=== PATIENT | female | born 1995 | race Native Hawaiian/Other Pacific Islander ===

== ENCOUNTER 2016-07-17 23:32 | Inpatient (IN) | payer MEDICAID, OTHER ==
[2016-07-18] MEDS ORDERED: LACTATED RINGERS 1,000 ML ONE (00:10)
[2016-07-18] MEDS ORDERED: POLYCILLIN/NS 2 GM/100 ML 2 GM/100 ML BAG IV ONE ×2 (00:10→00:14)
[2016-07-18] MEDS ORDERED: BRETHINE SUB-Q PRN (00:14)
[2016-07-18] MEDS ORDERED: MINERAL OIL PO PRN (00:14)
[2016-07-18] MEDS ORDERED: ePHEDrine SULFATE IV PRN ×2 (00:14→01:49)
[2016-07-18] MEDS ORDERED: BRETHINE IVP PRN (00:14)
[2016-07-18] MEDS ORDERED: XYLOCAINE 2% INFILTRATI ONE (00:14)
[2016-07-18 00:48] LABS: Urine Drugs of Abuse Note Disclamer
[2016-07-18 01:00] LABS: Hematocrit 33.9 % (30.3-42.9); Hemoglobin 11.1 gm/dl (10.1-14.3); Mean Corpuscular HGB Conc 33 % (30-34); Mean Corpuscular Hemoglobin 26 pg (28-32); Mean Corpuscular Volume 79 fl (79-97); Platelet Count 206 K/mm3 (140-440); Red Blood Count 4.27 M/mm3 (3.65-5.03); Red Cell Distribution Width 14.9 % (13.2-15.2); White Blood Count 8.8 K/mm3 (4.5-11.0)
[2016-07-18] MEDS ORDERED: LACTATED RINGERS 1,000 ML IV SCH (01:00)
[2016-07-18] MEDS: SUBLIMAZE IV PRN ×2 (01:16→08:25)
[2016-07-18] MEDS ORDERED: ePHEDrine SULFATE ONE (01:41)
[2016-07-18] MEDS ORDERED: NARCAN 2 MG/2 ML IV PRN (01:49)
--- NOTE | 2016-07-18 01:49 | Anesthesia Consultation ---
Anesthesia Consult and Med Hx Date of service: 07/18/16 - Airway Anesthetic Teeth Evaluation: Good ROM Head & Neck: Adequate Mental/Hyoid Distance: Adequate Mallampati Class: Class II Intubation Access Assessment: Good - Pulmonary Exam CTA: Yes - Cardiac Exam Cardiac Exam: No Murmur - Pre-Operative Health Status ASA Pre-Surgery Classification: ASA2 Proposed Anesthetic Plan: Epidural - Pulmonary Hx Asthma: Yes (childhood asthma) COPD: No Hx Pneumonia: No - Cardiovascular System Hx Hypertension: No Hx Coronary Artery Disease: No Hx Heart Attack/AMI: No Hx Angina: No - Central Nervous System Hx Seizures: No Hx Psychiatric Problems: No - Endocrine Hx Renal Disease: No Hx End Stage Renal Disease: No Hx Hypothyroidism: No Hx Hyperthyroidism: No - Hematic Hx Anemia: No Hx Sickle Cell Disease: No - Other Systems Hx Alcohol Use: No
[2016-07-18] MEDS ORDERED: fentaNYL-BUPIV 2 MCG/ML-0.125% 200 MCG/100 ML BAG EPIDURAL SCH (02:00)
--- NOTE | 2016-07-18 02:05 | History and Physical Report ---
History of Present Illness Date of examination: 07/18/16 Date of admission: 07/18/16 00:09 Chief complaint: Labor Past History Past Medical History: no pertinent history Past Surgical History: no surgical history GROUTMAN History: fibroids. denies: chlamydia, gonorrhea, hepatitis B, hepatitis C, herpes, HIV, syphilis, trichomonas Social history: no significant social history - Obstetrical History Expected Date of Delivery: 07/18/16 (By US performed at 30wk on 05/09/16) Actual Gestation: 40 Week(s) 0 Day(s) : 2 Para: 1 Number of Living Children: 1 #1 Gender: Female year: Birthweight: 3.4 kg Method of Delivery: Vaginal Gestational age at delivery: 40 Complications: none Medications and Allergies Allergies Allergy/AdvReac Type Severity Reaction Status Date / Time No Known Allergies Allergy Unverified 11/17/14 00:39 Home Medications Medication Instructions Recorded Confirmed Last Taken Type Pnv Plus Multivit Tab 1 tab PO DAILY 11/17/14 11/17/14 1 Day Ago History 1 Ferrous Sulfate [Feosol 325 MG tab] 325 mg PO BID PRN #60 tablet 11/18/14 Unknown Rx Ibuprofen [Motrin 600 MG tab] 600 mg PO Q6H PRN #30 tablet 11/18/14 Unknown Rx Active Meds: Active Medications Fentanyl (Sublimaze) 100 mcg IV Q2H PRN PRN Reason: Labor Pain Last Admin: 07/18/16 01:16 Dose: 100 mcg Lactated Ringer's (Lactated Ringers) 1,000 mls @ 125 mls/hr IV DIRECT ELLA Last Admin: 07/18/16 00:45 Dose: 125 mls/hr Oxytocin/Sodium Chloride (Pitocin/Ns 20 Unit/1000ml Drip) 20 units in 1,000 mls @ 125 mls/hr IV DIRECT ELAL Ampicillin Sodium (Polycillin/Ns 1 Gm/50 Ml) 1 gm in 50 mls @ 100 mls/hr IV Q4H ELLA PRN Reason: Protocol Fentanyl/Bupivacaine/Sodium Chlor (Fentanyl-Bupiv 2 Mcg/Ml-0.125%) 200 mcg in 100 mls @ 12 mls/hr EPIDURAL TITR ELLA PRN Reason: Protocol Mineral Oil (Mineral Oil) 30 ml PO QHS PRN PRN Reason: Constipation Review of Systems All systems: negative Genitourinary: contractions - Vital Signs Vital signs: Vital Signs Pulse BP Pulse Ox 82 142/83 96 07/17/16 23:43 07/17/16 23:43 07/17/16 23:43 Temp Pulse Resp BP Pulse Ox 97.6 F 81 20 119/74 99 07/18/16 00:45 07/18/16 01:57 07/18/16 01:16 07/18/16 01:57 07/18/16 01:53 - Physical Exam Breasts: Positive: deferred Abdomen: Positive: normal appearance Genitourinary (Female): Positive: normal external genitalia, normal perenium - Obstetrical Cervical Dilatation: 7 (by RN) Results Result Diagrams: 07/18/16 00:25 Abnormal lab results 07/18/16 Range/Units 00:25 MCH 26 L (28-32) pg All other labs normal. Ultrasound: report reviewed (performed in [place]) Assessment and Plan - Patient Problems (1) 40 weeks gestation of Current Visit: Yes Status: Acute (2) Active labor at term Current Visit: Yes Status: Acute
[2016-07-18 02:53] LABS: HIV-1 Antigen p24 Non React (Non React); HIVR-1/2 Ab Non React (Non React)
[2016-07-18] MEDS ORDERED: POLYCILLIN/NS 1 GM/50 ML 1 GM/50 ML BAG IV SCH (04:00)
--- NOTE | 2016-07-18 04:57 | Progress Note ---
Assessment and Plan - Patient Problems (1) 40 weeks gestation of Current Visit: Yes Status: Acute (2) Active labor at term Current Visit: Yes Status: Acute Subjective - Subjective Date of service: 07/18/16 Patient reports: no new complaints Objective - Vital Signs Vital Signs: Vital Signs - 12hr 07/17/16 07/17/16 07/17/16 23:43 23:45 23:48 Temperature 98.0 F Pulse Rate 82 76 Respiratory 18 Rate Blood Pressure 142/83 Blood Pressure 142/83 [Left Arm] O2 Sat by Pulse 96 98 Oximetry 07/17/16 07/18/16 07/18/16 23:53 00:45 00:52 Temperature 97.6 F Pulse Rate 75 91 H Respiratory 18 Rate Blood Pressure Blood Pressure [Left Arm] O2 Sat by Pulse 99 99 Oximetry 07/18/16 07/18/16 07/18/16 00:53 01:16 01:48 Temperature Pulse Rate 90 77 Respiratory 20 Rate Blood Pressure 114/70 125/84 Blood Pressure [Left Arm] O2 Sat by Pulse 98 Oximetry 07/18/16 07/18/16 07/18/16 01:53 01:57 01:58 Temperature Pulse Rate 77 81 79 Respiratory Rate Blood Pressure 119/74 Blood Pressure [Left Arm] O2 Sat by Pulse 99 98 Oximetry 07/18/16 07/18/16 07/18/16 01:59 02:01 02:03 Temperature Pulse Rate 69 71 65 Respiratory Rate Blood Pressure 128/79 124/70 128/77 Blood Pressure [Left Arm] O2 Sat by Pulse Oximetry 07/18/16 07/18/16 07/18/16 02:04 02:05 02:07 Temperature Pulse Rate 77 80 84 Respiratory Rate Blood Pressure 119/63 120/59 Blood Pressure [Left Arm] O2 Sat by Pulse 98 Oximetry 07/18/16 07/18/16 07/18/16 02:09 02:11 02:13 Temperature Pulse Rate 81 84 88 Respiratory Rate Blood Pressure 115/59 119/61 112/61 Blood Pressure [Left Arm] O2 Sat by Pulse 98 Oximetry 07/18/16 07/18/16 07/18/16 02:14 02:15 02:17 Temperature Pulse Rate 82 78 72 Respiratory Rate Blood Pressure 99/51 111/53 Blood Pressure [Left Arm] O2 Sat by Pulse 98 84 Oximetry 04/07/18/16 07/18/16 02:19 02:24 02:29 Temperature Pulse Rate 78 81 80 Respiratory Rate Blood Pressure Blood Pressure [Left Arm] O2 Sat by Pulse 96 97 97 Oximetry 07/18/16 07/18/16 07/18/16 02:34 02:39 02:44 Temperature Pulse Rate 84 99 H 79 Respiratory Rate Blood Pressure 100/58 Blood Pressure [Left Arm] O2 Sat by Pulse 97 96 96 Oximetry 07/18/16 07/18/16 07/18/16 02:46 02:49 02:54 Temperature Pulse Rate 83 77 80 Respiratory Rate Blood Pressure Blood Pressure [Left Arm] O2 Sat by Pulse 94 95 95 Oximetry 07/18/16 07/18/16 07/18/16 02:59 03:00 03:04 Temperature Pulse Rate 104 H 75 79 Respiratory Rate Blood Pressure Blood Pressure [Left Arm] O2 Sat by Pulse 99 94 93 Oximetry 07/18/16 07/18/16 07/18/16 03:07 03:09 03:13 Temperature Pulse Rate 82 77 84 Respiratory Rate Blood Pressure Blood Pressure [Left Arm] O2 Sat by Pulse 94 95 94 Oximetry 07/18/16 07/18/16 07/18/16 03:14 03:18 03:19 Temperature Pulse Rate 85 84 85 Respiratory Rate Blood Pressure 119/64 Blood Pressure [Left Arm] O2 Sat by Pulse 94 94 Oximetry 07/18/16 07/18/16 07/18/16 03:24 03:31 03:33 Temperature Pulse Rate 94 H 87 87 Respiratory Rate Blood Pressure Blood Pressure [Left Arm] O2 Sat by Pulse 95 97 94 Oximetry 07/18/16 07/18/16 07/18/16 03:36 03:41 03:42 Temperature Pulse Rate 88 97 H 88 Respiratory Rate Blood Pressure Blood Pressure [Left Arm] O2 Sat by Pulse 96 95 94 Oximetry 07/18/16 07/18/16 07/18/16 03:46 03:49 03:51 Temperature Pulse Rate 99 H 84 89 Respiratory Rate Blood Pressure Blood Pressure [Left Arm] O2 Sat by Pulse 96 94 96 Oximetry 07/18/16 07/18/16 07/18/16 03:54 03:56 04:01 Temperature Pulse Rate 86 79 76 Respiratory Rate Blood Pressure Blood Pressure [Left Arm] O2 Sat by Pulse 94 95 95 Oximetry 04/07/18/16 07/18/16 04:02 04:06 04:11 Temperature Pulse Rate 78 78 75 Respiratory Rate Blood Pressure Blood Pressure [Left Arm] O2 Sat by Pulse 94 95 96 Oximetry 07/18/16 07/18/16 07/18/16 04:13 04:16 04:21 Temperature Pulse Rate 80 76 76 Respiratory Rate Blood Pressure Blood Pressure [Left Arm] O2 Sat by Pulse 94 95 95 Oximetry 07/18/16 07/18/16 07/18/16 04:26 04:31 04:36 Temperature Pulse Rate 81 77 76 Respiratory Rate Blood Pressure Blood Pressure [Left Arm] O2 Sat by Pulse 96 94 95 Oximetry 07/18/16 07/18/16 07/18/16 04:38 04:41 04:43 Temperature Pulse Rate 79 80 82 Respiratory Rate Blood Pressure Blood Pressure [Left Arm] O2 Sat by Pulse 94 94 94 Oximetry 07/18/16 04:46 Temperature Pulse Rate 74 Respiratory Rate Blood Pressure 118/68 Blood Pressure [Left Arm] O2 Sat by Pulse 97 Oximetry - Exam FHR: category 1 Uterine Contraction Monitor Mode: External Cervical Dilatation: 9 Cervical Effacement Percentage: 90 station: 0 AROM CLEAR Uterine Contraction Pattern: Regular - Labs Labs: Abnormal Labs 07/18/16 00:25 MCH 26 L Laboratory Results - last 24 hr 07/18/16 07/18/16 07/18/16 00:25 00:25 00:25 WBC 8.8 RBC 4.27 Hgb 11.1 Hct 33.9 MCV 79 MCH 26 L MCHC 33 RDW 14.9 Plt Count 206 Urine Opiates Screen Urine Methadone Screen Ur Barbiturates Screen Ur Phencyclidine Scrn Ur Amphetamines Screen U Benzodiazepines Scrn Urine Cocaine Screen U Marijuana (THC) Screen Drugs of Abuse Note Hep Bs Antigen Hepatitis C Antibody Non-reactive HIV 1&2 Antibody Rapid HIV P24 Antigen Rubella IgG Antibody Immune Blood Type O POSITIVE Antibody Screen Negative 07/18/16 07/18/16 07/18/16 00:25 00:25 00:25 WBC RBC Hgb Hct MCV MCH MCHC RDW Plt Count Urine Opiates Screen Presumptive negative Urine Methadone Screen Presumptive negative Ur Barbiturates Screen Presumptive negative Ur Phencyclidine Scrn Presumptive negative Ur Amphetamines Screen Presumptive negative U Benzodiazepines Scrn Presumptive negative Urine Cocaine Screen Presumptive negative U Marijuana (THC) Screen Presumptive negative Drugs of Abuse Note Disclamer Hep Bs Antigen Non-reactive Hepatitis C Antibody HIV 1&2 Antibody Rapid Non react HIV P24 Antigen Non react Rubella IgG Antibody Blood Type Antibody Screen
[2016-07-18] MEDS: PITOCin/NS 20 UNIT/1000ML DRIP 20 UNITS/1,000 ML BAG IV SCH ×2 (05:32→06:34)
--- NOTE | 2016-07-18 05:42 | Procedure Note ---
OB Delivery Note - Delivery Date of Delivery: 07/18/16 Surgeon: PERCY ALFREDO Estimated blood loss: 200cc - Vaginal Delivery presentation: vertex Delivery position: OA Delivery induction: none Delivery monitor: external FHT, external uterine Route of delivery: Delivery placenta: spontaneous (INTACT) Episiotomy: none Delivery laceration: none Anesthesia: epidural - A at 1 minute: 8 at 5 minutes: 9 Gender: Female (7-5)
[2016-07-18] MEDS ORDERED: METHERGINE IM PRN (06:02)
[2016-07-18] MEDS ORDERED: PHENERGAN PO PRN (07:40)
[2016-07-18] MEDS ORDERED: BENADRYL PO PRN (07:40)
[2016-07-18] MEDS ORDERED: SODIUM CHLORIDE FLUSH SYRINGE 10 ML IV NR (07:40)
[2016-07-18] MEDS ORDERED: TORADOL IV PRN (07:40)
[2016-07-18] MEDS ORDERED: PERCOCET 5/325 PO PRN (07:40)
[2016-07-18] MEDS ORDERED: ZOFRAN IV PRN (07:40)
[2016-07-18] MEDS ORDERED: TYLENOL PO PRN (07:40)
[2016-07-18] MEDS ORDERED: MILK OF MAGNESIA PO PRN (07:40)
[2016-07-18] MEDS ORDERED: LANSINOH TP PRN (07:40)
[2016-07-18] MEDS ORDERED: PHENERGAN PR PRN (07:40)
[2016-07-18] MEDS ORDERED: TUCKS PAD TP PRN (07:40)
[2016-07-18] MEDS ORDERED: DERMOPLAST TP PRN (07:40)
[2016-07-18] MEDS ORDERED: CYTOTEC PR ONE (07:43)
[2016-07-18] MEDS ORDERED: HEMABATE IM ONE (07:43)
[2016-07-18] MEDS ORDERED: SUBLIMAZE IV PRN (08:20)
[2016-07-18] MEDS ORDERED: LOMOTIL PO PRN (08:47)
--- NOTE | 2016-07-18 08:52 | Event Note ---
Date: 07/18/16 Received call from RN stating moderate clots from vagina. Orders given for Hemabate, Cytotec and another 20units piton. On arrival pt alert and appropriately responsive, she had received Hemabate and Zofran and Pitocin was being bolused. Bedside US revealed normal appear cavity no evidence of retained tissue. Speculum placed and with Us guidance the cavity was gently probed with ringed forceps. No tissue removed. Fundus was firm, no further bleeding noted. Estevez catheter placed. Will observe for now. Continue Methergine po. She had 2 episodes of elevated BP's while being assessed for the bleeding. Last BP normal. Of note patient states she had the same thing occur with her previous
[2016-07-18] MEDS ORDERED: DULCOLAX PR PRN (10:00)
[2016-07-18] MEDS: MOTRIN PO SCH ×2 (11:59→18:39)
[2016-07-18] MEDS: METHERGINE PO SCH ×2 (12:00→17:16)
[2016-07-18 17:49] LABS: Hematocrit 33.9 % (30.3-42.9); Hemoglobin 10.8 gm/dl (10.1-14.3)
[2016-07-18] MEDS ORDERED: NACL ONE (22:49)
[2016-07-18] MEDS ORDERED: METHERGINE PO SCH (23:59)
[2016-07-19] MEDS: MOTRIN PO SCH ×3 (00:13→12:29)
[2016-07-19] MEDS ORDERED: BOOSTRIX IM ONE (06:00)
--- NOTE | 2016-07-19 06:39 | Discharge Summary ---
Providers - Providers Date of Admission: 07/18/16 00:09 Date of discharge: 07/19/16 (pt req to go home; "I want to speak to someone @ payments" Will have Medicaid Rep see pt today) Attending physician: PERCY ALFREDO 07/18/16 07:40 Consult to Case Management [CONS] Routine Services Needed at Discharge: Coning Machine Operator Consult to Lamination Inspector [CONS] Routine Reason For Exam: assistance with , SNS Primary care physician: PERCY ALFREDO Hospitalization Reason for admission: active labor, IUP at term Delivery: Episiotomy: none Laceration: none Incision: normal Other procedures: none complications: none Discharge diagnosis: IUP at term delivered baby: female Hospital course: uncomplicated vaginal delivery no care GBS treated X several doses Pt w/o complaint VSS FF below umb Lochia small Perineum intact H&H , drop r /t blood loss from delivery RX iron @ d/c Doing well s/p vag del P: d/c today with instruction Pt desires to f/u with [facility], info provided. Will have approp rep see pt to assist with Emergency Medicaid. Condition at discharge: Good Disposition: DISCHARGED TO HOME OR SELFCARE - Discharge Diagnoses (1) Spontaneous vaginal delivery Status: Acute Comment: f/u in office 4 weeks for PP care Plan - Provider Discharge Summary Activity: routine, no sex for 6 weeks, no heavy lifting 4 weeks, no strenuous exercise Diet: routine Instructions: routine Additional instructions: [] Smoking cessation referral if applicable(refer to patient education folder for contact #) [] Refer to [facility] Booklet Call your doctor immediately for: * Fever > 100.5 * Heavy vaginal bleeding ( >1 pad per hour) * Severe persistent headache * Shortness of breath * Reddened, hot, painful area to leg or breast * Drainage or odor from incision. * Keep incision clean and dry at all times and follow doctor's instructions regarding bathing/showering - Follow up plan Follow up: PERCY ALFREDO MD [Primary Care Provider] - 08/16/16 (Congratulations! Please call [phone] to schedule your visit in 4 weeks. Take medications as prescribed. Call with headache, unrelieved with Tylenol, blurred vision, chest pain. Call with any concerns.)
--- NOTE | 2016-07-19 08:35 | Progress Note ---
Subjective Date of service: 07/19/16 Interval history: 1st day after normal vaginal delivery Patient is in the bed, comfortable. Pain is well controlled with pin meds. Ambulated well. No residual neurological deficit. No anesthesia complications Objective - Constitutional Vitals: Vital Signs - 12hr 07/19/16 00:48 Temperature 98.4 F Pulse Rate [ 62 Left Brachial] Respiratory 18 Rate Blood Pressure 98/50 [Left Arm] - Labs CBC & Chem 7: 07/18/16 17:29
[2016-07-19] MEDS ORDERED: DEPO-PROVERA (CONTRACEPTION) IM ONE (10:00)
[2016-07-19 13:02] VITALS: BP 120/70
== END 2016-07-19 14:15 | disposition home or self-care (01) | DRG 775 ==
LOC: TRG 23:32 → LD 07-18 00:09 → OB 07-18 09:40
PROVIDERS: ADMIT Obstetrics & Gynecology; ATTEND Obstetrics & Gynecology
PROC: 10E0XZZ Delivery of Products of Conception, External Approach (ICD-10-PCS; principal; 2016-07-18)
PROC: 3E0S3CZ (ICD-10-PCS; 2016-07-18)
PROC: 00HU33Z Insertion of Infusion Device into Spinal Canal, Percutaneous Approach (ICD-10-PCS; 2016-07-18)
PROC: 3E0234Z Introduction of Serum, Toxoid and Vaccine into Muscle, Percutaneous Approach (ICD-10-PCS; 2016-07-19)
DX: O80 Encounter for full-term uncomplicated delivery (principal); O09.33 Supervision of pregnancy with insufficient antenatal care, third trimester; Z3A.40 40 weeks gestation of pregnancy; Z37.0 Single live birth; Z23 Encounter for immunization
CPT/HCPCS: 36415; 80307; 85014; 85018; 85027; 86592; 86706; 86762; 86803; 86850; 86900; 86901; 87806; 90471; 90715; J0290; J1050; J1885; J2210; J2405; J2590; J3010; J7120